=== PATIENT | male | born 1970 | race Caucasian/White ===

== ENCOUNTER 2016-07-20 10:32 | Outpatient (CLI) ==
[2013-05-13 20:55] VITALS: BMI 33.5
--- NOTE | 2016-07-20 11:35 | DI ---
EXAM: Lumbar spine radiographs. HISTORY: Back pain. COMPARISON: None available. TECHNIQUE: 5 views of the lumbar spine. FINDINGS: The normal curvature and alignment are maintained. Vertebral body and intervertebral dis c heights are normal. No acute fracture or subluxation identified. Nondisplaced right pars defect at L5 cannot be excluded. Mild multilevel endplate osteophyte formation and facet arthropathy noted . Sacral arcuate lines are intact. Soft tissues are unremarkable. Large amount of stool noted in the colon. IMPRESSION: Mild multilevel degenerative changes.
== END 2016-07-20 10:33 | disposition home or self-care (01) ==
LOC: RAD 10:32
PROVIDERS: ATTEND Family Medicine
DX: M54.9 Dorsalgia, unspecified (principal)

== ENCOUNTER 2017-01-25 15:12 | Emergency (ER) ==
[2017-01-25 15:16] VITALS: BP 126/86; TEMP 98; BMI 29.2
--- NOTE | 2017-01-25 15:30 | ED.PDOC ---
General ED Provider: Dr. BUFFY MATT Chief Complaint: Face Laceration Stated Complaint: laceration upper lip Time Seen by Physician: 15:27 Mode of Arrival: Walk-In Information Source: Patient Exam Limitations: No limitations Primary Care Provider: PATRICIA PENA Nursing and Triage Documentation Reviewed and Agree: Yes Skin Complaint Exam - Laceration/Head/Facial Complaint/Exam Location of Injury: Face Mechanism of Injury: Laceration Onset/Duration: blunt force 1 hr ago see photo Symptoms Are: Still present Initial Severity: Mild Current Severity: None Aggravating: None Alleviating: None Associated Signs and Symptoms: Denies: Fever, Chills, Erythema, Numbness, Tingling Differential Diagnoses: Laceration Review of Systems - Review Of Systems Constitutional: Reports: No symptoms Eyes: Reports: No symptoms Ears, Nose, Mouth, Throat: Reports: No symptoms Respiratory: Reports: No symptoms Cardiac: Reports: No symptoms GI: Reports: No symptoms : Reports: No symptoms Musculoskeletal: Reports: No symptoms Skin: Reports: Other (laceration see photo) Neurological: Reports: No symptoms Endocrine: Reports: No symptoms Hematologic/Lymphatic: Reports: No symptoms All Other Systems: Reviewed and Negative Past Medical History - Past Medical History Previously Healthy: Yes Endocrine: Reports: None Cardiovascular: Reports: None Respiratory: Reports: None Hematological: Reports: None Gastrointestinal: Reports: None Genitourinary: Reports: None Neuro/Psych: Reports: None Musculoskeletal: Reports: None Cancer: Reports: None - Surgical History General Surgical History: Reports: None - Family History Family History: Reports: None - Social History Smoking Status: Never smoker Hx Substance Use: No Alcohol Screening: Occasionally - Immunizations Tetanus Shot up to Date: Yes (2010) Physical Exam - Physical Exam Appearance: Well-appearing, No pain distress, Well-nourished Eyes: NANO, EOMI, Conjunctiva clear ENT: Ears normal, Nose normal, Oropharynx normal Respiratory: Airway patent, Breath sounds clear, Breath sounds equal, Respirations nonlabored Cardiovascular: RRR, Pulses normal, No rub, No murmur GI/: Soft, Nontender, No masses, Bowel sounds normal, No Organomegaly Musculoskeletal: Normal strength, ROM intact, No edema, No calf tenderness Skin: Warm, Dry, Normal color Neurological: Sensation intact, Motor intact, Reflexes intact, Cranial nerves intact, Alert, Oriented Psychiatric: Affect appropriate, Mood appropriate Procedures - Laceration/Wound Repair No standard instances Wound Description: Linear Wound Length (cm): 3mm Wound Width: 1mm Wound Depth: 1mm Wound Explored: Clean Wound Irrigated: No Wound Prep: Saline, Hibiclens Wound Repaired With: Dermabond Critical Care Note - Critical Care Note Total Time (mins): 0 Course - Course Vital Signs: Temp Pulse Resp BP Pulse Ox 01/25/17 15:13 98.0 F 90 20 126/86 98 Departure - Departure Time of Disposition: 15:29 Disposition: HOME SELF-CARE Discharge Problem: Facial laceration Instructions: Laceration (ED), Facial Laceration (ED), Skin Adhesive Care (ED) Condition: Good Pt referred to PMD for follow-up: Yes Allergies/Adverse Reactions: Allergies No Known Allergies Allergy (Verified 01/25/17 15:17) Home Medications: Ambulatory Orders Bupropion HCl [Wellbutrin] 75 mg PO QAM 05/13/13 Losartan Potassium [Cozaar] 25 mg PO QAM 05/13/13 Trazodone HCl 50 mg PO QPM 05/13/13 Disposition Discussed With: Patient
== END 2017-01-25 15:36 | disposition home or self-care (01) ==
LOC: ED 15:12
DX: S01.511A Laceration without foreign body of lip, initial encounter (principal); W22.8XXA Striking against or struck by other objects, initial encounter
CPT/HCPCS: 99283